=== PATIENT | male | born 1985 | race Caucasian/White ===

== ENCOUNTER 2024-06-27 18:12 | Emergency (ER) | payer BC, OTHER ==
[2024-06-27] MEDS ORDERED: predniSONE 20 MG TAB ONE (19:50)
== END 2024-06-27 19:51 | disposition home or self-care (01) ==
LOC: BURERS 18:12
DX: J06.9 Acute upper respiratory infection, unspecified (principal); R09.82 Postnasal drip; F17.220 Nicotine dependence, chewing tobacco, uncomplicated
CPT/HCPCS: 87081; 87428; 87430; 99283; J7512